=== PATIENT | male | born 1970 | race Two or more races ===

== ENCOUNTER 2023-11-10 17:35 | Emergency (ER) | payer MEDICAID ==
[~2023-11-10] VITALS: Ht 177.8 cm; Wt 92.7 kg
[2023-11-10] MEDS ORDERED: HYDROcodone-ACET 5/325MG TAB PO ONE (20:00)
[2023-11-10 20:01] VITALS: BP 116/96; PULSE 89; RESP 89; TEMP 98; O2SAT 97
[2023-11-10] MEDS ORDERED: HYDROcodone-ACET 5/325MG TAB ONE (20:12)
[2023-11-10] MEDS ORDERED: TETANUS-DIPTH-ACEL PERTUSSIS 0.5ML SYR Tdap IM ONE ×2 (21:15)
[2023-11-10] MEDS ORDERED: HYDR1TAB97 PO (21:37)
== END 2023-11-10 21:46 | disposition home or self-care (01) ==
LOC: ER 17:35
DX: S62.616A Displaced fracture of proximal phalanx of right little finger, initial encounter for closed fracture (principal); S61.216A Laceration without foreign body of right little finger without damage to nail, initial encounter; V87.8XXA Person injured in other specified noncollision transport accidents involving motor vehicle (traffic), initial encounter; Y93.55 Activity, bike riding; Y92.89 Other specified places as the place of occurrence of the external cause; Y99.8 Other external cause status
CPT/HCPCS: 12002; 26770; 73120; 73130; 90471; 90715